=== PATIENT | male | born 1985 | race Caucasian/White ===

== ENCOUNTER 2023-10-06 12:35 | Outpatient (CLI) | payer MEDICARE, MEDICAID, SELFPAY ==
--- NOTE | ~2023-10-06 | MR_ITS ---
MRI of the brain Clinical History: Epilepsy Technique: Axial and sagittal T1-weighted images were acquired. These were followed by axial T2-weigh leila, diffusion weighted, gradient, and FLAIR images. Coronal FLAIR and T1-weighted images were perfor med. Findings: No abnormal signal seen in the brain parenchyma. No acute infarct, intracranial hemorrhage, or mass lesion. Ventricles and subarachnoid spaces are unremarkable. Orbits are unremarkable. Paranasal sinuses and m astoid air cells are clear. Major intracranial flow voids are grossly intact. Sagittal midline structures are intact. No definite evidence for mesial temporal sclerosis. IMPRESSION: No significant abnormality seen. Reviewed, dictated and finalized at location .
== END 2023-10-06 12:36 | disposition home or self-care (01) ==
LOC: ANHIMG 12:40
PROVIDERS: Visit Provider Student in an Organized Health Care Education/Training Program
DX: G40.909 Epilepsy, unspecified, not intractable, without status epilepticus (principal)
CPT/HCPCS: 70551